=== PATIENT | female | born 1990 | race Caucasian/White ===

== ENCOUNTER 2023-08-13 06:43 | Inpatient (IN) | payer BC ==
[2023-08-13] VITALS (64 sets, daily range): BP systolic 98–150; BP diastolic 51–99; PULSE 78–138; TEMP 97.6–98.7
[~2023-08-13] VITALS: Ht 162.7 cm; Wt 85.5 kg
--- NOTE | 2023-08-13 07:00 | NUR ---
PT AMBULATED ONTO THE UNIT WITH SPOUSE.PT REPORTS SROM AT 0500 AND CONTRACTIONS INCREASING.PT DENIES VB.PT REPORTS POSTIVE MOVEMENT.POC REVIEWED WITH PT.EFM AND TOCO APPLIED AND TRACING CATEGORY 1.AMNIOTRACE PERFORMED TRACING POSITIVE FOR AMNIOTIC FLUID.SVE PERFORMED BY THIS NURSE .PHYSICIAN NOTIFIED.CONSENTS REVIEWED WITH PT.PT VERBALIZES UNDERSTANDING.
[2023-08-13] MEDS ORDERED: UNISOM25 MG (07:07)
[2023-08-13] MEDS ORDERED: PEPCID 20MG TAB20 MG PO (07:07)
[2023-08-13] MEDS ORDERED: FLONASEALLERGY NS (07:07)
[2023-08-13] MEDS ORDERED: PRENATAL TABLET PO (08:31)
[2023-08-13 09:13] LABS: HEMATOCRIT 35.8 % (37.0-47.0); HEMOGLOBIN 12.2 g/dl (12.5-16.0); MEAN CELL VOLUME 92 fl (80.0-100.0); MEAN CORPUSCULAR HEMOGLOBIN 31 pg (27-31); MEAN CORPUSCULAR HGB CONC 34 g/dl (33.0-37.0); MEAN PLATELET VOLUME 10.8 fl (7.4-10.4); PLATELET COUNT 345 K/mm3 (130-400); REDCELL DISTRIBUTION WIDTH-CV 13.7 % (11.5-14.5)
[2023-08-13 09:29] LABS: BAND 2 % (0-10); EOSINOPHIL 1 % (0-4); LYMPHOCYTE 8 % (20.0-51.0); NEUTROPHILS 83 % (42.0-75.2)
[2023-08-13 09:30] LABS: PLATELET ESTIMATE NORMAL (NORMAL)
--- NOTE | 2023-08-13 09:35 | NUR ---
PT SITTING UP ON THE SIDE OF THE BED FOR EPIDURAL PLACEMENT.LR BOLUS INFUSING PER PROTOCOL.PULSE OX PLACED ON THE LEFT FINGER.DIFFICULTY TRACINNG EFM AND TOCO DUE TO MATERNAL POSTIIONING. 0919 TEST DOSE ADMINISTERED PER RACHEL.SENAIT.PT TOLERATED PROCEDURE WELL.
--- NOTE | 2023-08-13 10:29 | NUR ---
1000 7 MINUTE LONG PROLONGED DECEL NOTED INTO THE 60'S.INTERVENTIONS PERFORMED: POSITION CHANGES, ADMINISTERED EPHEDRINE, BOLUS OF LR, AND STOPPED THE PITOCIN INFUSION. HEARTRATE BEGINNING TO RECOVER AND RETURN TO BASELINE. 1013 PHYSICIAN NOTIFIED VIA NURSE. 1017 DR ANTUNEZ RETURNED CALL.ORDERED TO RESTART THE PITOCIN AFTER 30 MINUTES.
--- NOTE | 2023-08-13 18:45 | NUR ---
Maternal HR ranging from 120-140 on pulse ox. Verified by palpation. Pt repositioned to left lateral with peanut ball.
--- NOTE | 2023-08-13 19:15 | NUR ---
SVE by this RN. Dilated 6 with cervical swelling noted. Repositioned to right lateral with peanut ball.
--- NOTE | 2023-08-13 19:48 | NUR ---
Dr. Herring at bedside. SVE performed and much more cervical swelling per . Recommend to proceed with section. Pt agreeable at this time. Questions invited and answered. SENAIT Reyes notified. Nursery and charge nurse updated.
--- NOTE | 2023-08-13 20:05 | NUR ---
Incision site scrubbed. Monitors off. Pt to OR by labor bed with spouse and additional nursing staff.
[2023-08-14 00:50] VITALS: BP 120/78; PULSE 107
[2023-08-14 04:15] VITALS: BP 110/67; PULSE 97; TEMP 97.8
--- NOTE | 2023-08-14 04:40 | NUR ---
Pt able to lift and hold each leg off of bed for 5 seconds. Pt able to ambulate to bathroom with standby assistance. Vee catheter removed. Educated on pericare, verbalized understanding. Educated on need of 3 measured voids. Clean gown on. Mesh panties and peripad applied. Pt then ambulated in hallway with and spouse.
[2023-08-14 07:30] VITALS: BP 122/78; PULSE 103; TEMP 97.7
[2023-08-14 11:06] VITALS: BP 110/66; PULSE 108; TEMP 97.7
[2023-08-14 16:01] VITALS: BP 119/83; PULSE 106; TEMP 97.5
[2023-08-14 20:00] VITALS: BP 123/80; PULSE 107; TEMP 97.6
[2023-08-15 08:00] VITALS: BP 118/76; PULSE 100; TEMP 98.3
[2023-08-15] MEDS ORDERED: IBU600 MG PO (09:28)
[2023-08-15] MEDS ORDERED: ROXICODONE 55 MG/TAB PO (09:29)
[2023-08-15 16:00] VITALS: BP 128/89; PULSE 94; TEMP 98.1
[2023-08-15 21:30] VITALS: BP 127/88; PULSE 106; TEMP 98.1
[2023-08-16 08:00] VITALS: BP 115/79; PULSE 83; TEMP 97.6
--- NOTE | 2023-08-16 12:45 | NUR ---
DISCHARGE TEACHING COMPLETED. EDUCATED ON FOLLOW UP APPOINTMENT AND PRESCRIPTIONS. QUESTIONS INVITED AND ANSWERED.
== END 2023-08-16 13:00 | disposition home or self-care (01) | DRG 787 ==
LOC: LDRO 06:43 → LDR 08:21 → LDRO 08:22 → EDSEX 08:23 → LDR 08:23 → OB 22:00
PROVIDERS: ADMIT Obstetrics & Gynecology
PROC: 10D00Z1 Extraction of Products of Conception, Low, Open Approach (ICD-10-PCS; principal; 2023-08-13)
PROC: 10H07YZ Insertion of Other Device into Products of Conception, Via Natural or Artificial Opening (ICD-10-PCS; 2023-08-13)
DX: O42.92 Full-term premature rupture of membranes, unspecified as to length of time between rupture and onset of labor (principal); O98.52 Other viral diseases complicating childbirth; B02.9 Zoster without complications; G43.909 Migraine, unspecified, not intractable, without status migrainosus; J30.2 Other seasonal allergic rhinitis; O99.892 Other specified diseases and conditions complicating childbirth; O99.52 Diseases of the respiratory system complicating childbirth; Z3A.38 38 weeks gestation of pregnancy; Z37.0 Single live birth; Z23 Encounter for immunization; Z88.2 Allergy status to sulfonamides; Z91.048 Other nonmedicinal substance allergy status
CPT/HCPCS: J0665; J0690; J1100; J1885; J2401; J2405; J2590; J2791; J2795; J3010; J7120